=== PATIENT | female | born 1975 | race African-American/Black ===

== ENCOUNTER 2017-02-15 16:01 | Emergency (ER) | payer SELFPAY ==
[~2017-02-15] VITALS: Ht 167.6 cm; Wt 68.0 kg
[~2017-02-15 16:01] MED LIST: CHLO.12%30 SWISH-SPIT; MMW SWISH-SPIT
[2017-02-15 16:03] VITALS: BP 125/66; PULSE 99; RESP 20; TEMP 99; O2SAT 100
--- NOTE | 2017-02-15 16:38 | PD ---
HPI Chief Complaint: Slurry Man Problem/Complaint Time Seen by Provider: 16:37 Travel History International Travel<30 days: No Contact w/Intl Traveler<30days: No Traveled to known affect area: No History of Present Illness HPI 41-year-old female came to the emergency room with history of some vaginal bleeding every time she wipes after she urinates. Patient says her last menstrual cycle was 2 weeks ago. This is the second time it has happened in her mid cycle. No history of vaginal discharge. Patient has only protected sex. And she does not think there is any chance of being either. No history of dysuria. Patient seems a little bit distressed from this fact. She says she wants this to be over with. Vital signs are otherwise stable. [facility] Past Medical History Narrative Medical List of her past medical, surgical, social and family history is reviewed from the nursing note. Hx Anticoagulant Therapy: No Heart Rhythm Problems: No Cardiac Catheterization: No Cardiovascular Problems: No High Cholesterol: Yes Chemotherapy: No Congestive Heart Failure: No Cerebrovascular Accident: No Diabetes: No Diminished Hearing: No Headaches: Yes Hypertension: No Psychiatric: Yes (depression) Respiratory: No Immunizations Current: No Myocardial Infarction: No ?: Not LMP: 2 WEEKS : 3 Para: 3 Miscarriage: 0 : 0 Tubal Ligation: Yes Past Surgical History Coronary Artery Bypass Graft: No Hysterectomy: No Social History Alcohol Use: No Tobacco Use: No Substance Use: No Allergies-Medications (Allergen,Severity, Reaction): Coded Allergies: No Known Allergies (Verified , 03/03/16) Comments No known drug allergies. Reported Meds & Prescriptions Reported Meds & Active Scripts Active Norethindrone (Norethindrone Acetate) 5 Mg Tab 5 Mg PO DAILY Magic Mouthwash-Diphenhy Formula (Lidocaine/Diphenhydr/Alum/Mg/Simeth) Ml 5-10 Ml SWISH-SPIT 5 TIMES A DAY MAGIC MOUTHWASH CONTAINS 1/3 VISCOUS LIDOCAINE, 1/3 MAALOX, AND 1/3 BENADRYL. Peridex Oral Rinse (Chlorhexidine Gluconate) 0.12 % Gema 15 Ml SWISH-SPIT TID 7 Days Narrative Medication List of her home medications reviewed from the nursing note. Review of Systems Except as stated in HPI: all other systems reviewed are Neg Physical Exam Narrative GENERAL: Awake, alert, anxious SKIN: Focused skin assessment warm/dry. HEAD: Atraumatic. Normocephalic. EYES: Pupils equal and round. No scleral icterus. No injection or drainage. ENT: No nasal bleeding or discharge. Mucous membranes pink and moist. NECK: Trachea midline. No JVD. CARDIOVASCULAR: Regular rate and rhythm. No murmur appreciated. RESPIRATORY: No accessory muscle use. Clear to auscultation. Breath sounds equal bilaterally. GASTROINTESTINAL: Abdomen soft, non-tender, nondistended. Hepatic and splenic margins not palpable. MUSCULOSKELETAL: No obvious deformities. No clubbing. No cyanosis. No edema. NEUROLOGICAL: Awake and alert. No obvious cranial nerve deficits. Motor grossly within normal limits. Normal speech. PSYCHIATRIC: Appropriate mood and affect; insight and judgment normal. Data Data Last Documented VS Vital Signs Date Time Temp Pulse Resp B/P Pulse Ox O2 Delivery O2 Flow Rate FiO2 02/15/17 16:03 99.0 99 20 125/66 100 Room Air Orders Urinalysis - C+S If Indicated (02/15/17 16:45) Ed Urine Pregnancytest Poc (02/15/17 16:45) Labs Laboratory Tests Test 02/15/17 16:54 Urine Color YELLOW Urine Turbidity CLEAR Urine pH 7.0 Urine Specific [place] 1.025 Urine Protein NEG mg/dL Urine Glucose (UA) NEG mg/dL Urine Ketones NEG mg/dL Urine Occult Blood MOD Urine Nitrite NEG Urine Bilirubin NEG Urine Urobilinogen LESS THAN 2.0 MG/DL Urine Leukocyte Esterase NEG Urine RBC 1 /hpf Urine WBC 2 /hpf Urine Squamous Epithelial 2 /hpf Cells Urine Mucus FEW /lpf Microscopic Urinalysis Comment CULT NOT INDICATED MDM Medical Decision Making Medical Screen Exam Complete: Yes Emergency Medical Condition: Yes Medical Record Reviewed: Yes Differential Diagnosis UTI, hemorrhagic cystitis, DUB Narrative Course 5:15 PM awaiting for the UA. Case has been signed over to the oncoming ER physician. Procedures EKG Prior to Arrival: No Scripts Norethindrone 5 Mg Tab5 Mg PO DAILY #28 TAB Ref 0 Prov:Amy Olivier MD 02/15/17 Stanley Molina MD February 15, 2017 16:38
[2017-02-15 17:19] LABS: BLOOD, URINE MOD (NEG); COMMENT (UR) CULT NOT INDICATED; CULTURE IF INDICATED CULT NOT INDICATED; GLUCOSE,URINE NEG (NEG); KETONE, URINE NEG (NEG); MUCUS URINE FEW /lpf (OCC); NITRITE,URINE NEG (NEG); SQUAMOUS EPITHELIAL CELL URINE 2 /hpf (0-5); URINE COLOR YELLOW (YELLW/STRAW)
[2017-02-15] MEDS ORDERED: NORE5TAB PO (17:40)
--- NOTE | 2017-02-15 17:40 | PD ---
Physical Exam Date Seen by Provider: February 15, 2017 Narrative Patient is being seen for abnormal vaginal bleeding. Data Data Last Documented VS Vital Signs Date Time Temp Pulse Resp B/P Pulse Ox O2 Delivery O2 Flow Rate FiO2 02/15/17 16:03 99.0 99 20 125/66 100 Room Air Orders Urinalysis - C+S If Indicated (02/15/17 16:45) Ed Urine Pregnancytest Poc (02/15/17 16:45) Labs Laboratory Tests Test 02/15/17 16:54 Urine Color YELLOW Urine Turbidity CLEAR Urine pH 7.0 Urine Specific [place] 1.025 Urine Protein NEG mg/dL Urine Glucose (UA) NEG mg/dL Urine Ketones NEG mg/dL Urine Occult Blood MOD Urine Nitrite NEG Urine Bilirubin NEG Urine Urobilinogen LESS THAN 2.0 MG/DL Urine Leukocyte Esterase NEG Urine RBC 1 /hpf Urine WBC 2 /hpf Urine Squamous Epithelial 2 /hpf Cells Urine Mucus FEW /lpf Microscopic Urinalysis Comment CULT NOT INDICATED MDM Supervised Visit with JODY: No Narrative Course Laboratory Tests Test 02/15/17 16:54 Urine Color YELLOW Urine Turbidity CLEAR Urine pH 7.0 Urine Specific [place] 1.025 Urine Protein NEG mg/dL Urine Glucose (UA) NEG mg/dL Urine Ketones NEG mg/dL Urine Occult Blood MOD Urine Nitrite NEG Urine Bilirubin NEG Urine Urobilinogen LESS THAN 2.0 MG/DL Urine Leukocyte Esterase NEG Urine RBC 1 /hpf Urine WBC 2 /hpf Urine Squamous Epithelial 2 /hpf Cells Urine Mucus FEW /lpf Microscopic Urinalysis Comment CULT NOT INDICATED This patient needs to be evaluated by [employer]. She states that she knows of a [employer]PER[employer]ENDENT that she can follow-up with. She does state that she is interested in trying control pills. Diagnosis Primary Impression: Metrorrhagia Patient Instructions: Dysfunctional Uterine Bleeding (DC), General Instructions Med/Other Pt SpecificInfo: Prescription(s) given Scripts Norethindrone 5 Mg Tab5 Mg PO DAILY #28 TAB Ref 0 Prov:Amy Olivier MD 02/15/17 Disposition: 01 DISCHARGE HOME Condition: Stable Amy Olivier MD February 15, 2017 17:40
== END 2017-02-15 18:31 | disposition home or self-care (01) ==
LOC: NEPD 16:01
DX: N92.1 Excessive and frequent menstruation with irregular cycle (principal); E78.00 Pure hypercholesterolemia, unspecified; Z86.59 Personal history of other mental and behavioral disorders
CPT/HCPCS: 81001; 84703; 99283

== ENCOUNTER 2017-03-19 19:00 | Observation (INO) | payer SELFPAY ==
[~2017-03-19] VITALS: Ht 167.6 cm; Wt 62.0 kg
[~2017-03-19 19:00] MED LIST changes: +NORE5TAB PO
[2017-03-19 19:03] VITALS: BP 115/59; PULSE 73; RESP 16; TEMP 98.9; O2SAT 99
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
[2017-03-19] MEDS ORDERED: ASPIRIN 81 MG CHEW TAB PO ONE (19:30)
[2017-03-19] MEDS ORDERED: SODIUM CHLORIDE 0.9% FLUSH 10 ML FLUSH IVF PRN (19:30)
--- NOTE | 2017-03-19 19:54 | RADRPT ---
EXAM DATE/TIME: 03/19/2017 19:21 [facility] COMPARISON: No previous studies available for comparison. INDICATIONS : Chest pain. MEDICAL HISTORY : None. SURGICAL HISTORY : None. ENCOUNTER: Initial ACUITY: 1 day PAIN SCORE: 0/10 LOCATION: Bilateral chest FINDINGS: Portable AP view of the chest demonstrates a normal-sized cardiac silhouette. No effusion, consolidat ion, or pneumothorax is visualized. The bones and soft tissues demonstrate no acute abnormality. Lung s are underinflated with atelectasis at the left base. Multiple EKG lines overlie the patient. CONCLUSION: Underinflation with atelectasis at the left base. No acute finding is identified. Robin Bishop MD on March 19, 2017 at 19:51 Board Certified Radiologist. This report was verified electronically.
[2017-03-19 19:58] LABS: AUTOMATED NEUTROPHIL # 4.3 TH/MM3 (1.8-7.7); BASOPHIL % 0.6 % (0.0-2.0); EOSINOPHIL # 0.2 TH/MM3 (0-0.4); EOSINOPHIL % 2.3 % (0.0-4.0); HEMATOCRIT 31.2 % (35.0-46.0); HEMO FLAGS DIFF FINAL; LYMPH % 28.8 % (9.0-44.0); MEAN CELL VOLUME 72.7 FL (80.0-100.0); MEAN CORPUSCULAR HEMOGLOBIN 23.9 PG (27.0-34.0); MEAN CORPUSCULAR HGB CONC 32.8 % (32.0-36.0); MONO % 5.7 % (0.0-8.0); NEUT % 62.6 % (16.0-70.0); PLATELET COUNT 284 TH/MM3 (150-450); RED BLOOD COUNT 4.29 MIL/MM3 (4.00-5.30); RED CELL DISTRIBUTION WIDTH 16.4 % (11.6-17.2); WHITE BLOOD COUNT 6.8 TH/MM3 (4.0-11.0)
[2017-03-19 20:08] LABS: APTT (PATIENT) 25.9 SEC (24.3-30.1); PROTHROMBIN TIME - PATIENT 11.6 SEC (9.8-11.6)
[2017-03-19 20:13] LABS: ANION GAP 9 MEQ/L (5-15); AST (GOT) 15 U/L (15-37); BLOOD UREA NITROGEN 8 MG/DL (7-18); CHLORIDE 105 MEQ/L (98-107); GLOMERULAR FILTRATION RATE 101 ML/MIN (>89); POTASSIUM 3.6 MEQ/L (3.5-5.1); SODIUM (NA) 139 MEQ/L (136-145)
[2017-03-19 20:14] LABS: ALT (GPT) 22 U/L (10-53)
[2017-03-19 20:18] LABS: ALKALINE PHOSPHATASE 72 U/L (45-117); TOTAL BILIRUBIN ADULT 0.1 MG/DL (0.2-1.0)
[2017-03-19 20:20] LABS: CREATINE KINASE 79 U/L (26-192)
[2017-03-19] MEDS ORDERED: SODIUM CHLOR 0.9% 1000 ML INJ 1,000 ML IV SCH (20:47)
[2017-03-19 21:20] VITALS: BP 137/85; PULSE 69; RESP 18; O2SAT 100
[2017-03-19] MEDS ORDERED: LORazepam 2 MG/ML VIAL IV PUSH ONE (22:15)
[2017-03-19] MEDS ORDERED: IOHEXOL 350 MG/ML 10 ML VIAL (for RAD DIAG) IV ONE (22:19)
--- NOTE | 2017-03-19 22:27 | RADRPT ---
EXAM DATE/TIME: 03/19/2017 22:17 [facility] COMPARISON: No previous studies available for comparison. INDICATIONS : Chest pain. IV CONTRAST: 74 cc Omnipaque 350 (iohexol) IV RADIATION DOSE: 23.28 CTDIvol (mGy) MEDICAL HISTORY : None SURGICAL HISTORY : Tubal ligation. ENCOUNTER: Initial ACUITY: 2 days PAIN SCALE: 7/10 LOCATION: chest TECHNIQUE: Volumetric scanning of the chest was performed using a pulmonary embolism protocol MIP images were re constructed. Using automated exposure control and adjustment of the mA and/or kV according to patien t size, radiation dose was kept as low as reasonably achievable to obtain optimal diagnostic quality images. FINDINGS: PULMONARY ARTERIES: No filling defects are seen in the pulmonary arteries through the segmental level. LUNGS: There is no consolidation or pneumothorax . No concerning pulmonary nodule is visualized. Linear opa [place] in the left lower lobe likely represents atelectasis. PLEURAE: There is no pleural thickening or pleural effusion. MEDIASTINUM: There is good visualization of the great vessels of the middle mediastinum. No evidence of mediastin al or hilar adenopathy/mass. MUSCULOSKELETAL: No acute finding. MISCELLANEOUS: The visualized upper abdominal organs demonstrate no acute abnormality. CONCLUSION: No PE or acute abnormality is identified. Robin Bishop MD on March 19, 2017 at 22:22 Board Certified Radiologist. This report was verified electronically.
[2017-03-19] MEDS ORDERED: ACETAMINOPHEN 500 MG CPLT PO PRN (22:45)
[2017-03-19] MEDS ORDERED: SODIUM CHLORIDE 0.9% FLUSH 10 ML FLUSH IV FLUSH PRN (22:45)
[2017-03-19 23:31] LABS: CREATINE KINASE 73 U/L (26-192)
[2017-03-19 23:59] VITALS: BP 120/72; PULSE 70; RESP 18; TEMP 97.9; O2SAT 100
[2017-03-20] VITALS (7 sets, daily range): BP systolic 104–105; BP diastolic 54–57; PULSE 52–68; RESP 18–20; TEMP 97.9–98.3; O2SAT 62–100
[2017-03-20] MEDS ORDERED: ALPRAZolam 0.5 MG TAB PO PRN
[2017-03-20] MEDS: IBUPROFEN 600 MG TAB PO SCH ×2 (00:30→06:00)
[2017-03-20 02:22] LABS: TRANSFERRIN IRON PROFILE 292 MG/DL (200-360)
[2017-03-20 02:31] LABS: FERRITIN 5 NG/ML (8-252)
[2017-03-20 03:32] LABS: CREATINE KINASE 63 U/L (26-192)
--- NOTE | 2017-03-20 08:30 | HHI.DCPOC ---
Discharge Care Plan Diagnosis: (1) Chest pain, atypical Goals to Promote Your Health * To prevent worsening of your condition and complications * To maintain your health at the optimal level Directions to Meet Your Goals Take your medications as prescribed Follow your dietary instruction Follow activity as directed Keep your appointments as scheduled Take your immunizations and boosters as scheduled If your symptoms worsen call your PCP, if no PCP go to Urgent Care Center or Emergency Room Smoking is Dangerous to Your Health. Avoid second hand smoke Call the 24-hour hour crisis hotline for domestic abuse at Niraj Velasquez Mar 20, 2017 08:30
[2017-03-20] MEDS ORDERED: SODIUM CHLORIDE 0.9% FLUSH 10 ML FLUSH IV FLUSH SCH (09:00)
--- NOTE | 2017-03-20 09:33 | HHI.HP ---
HPI Primary Care Physician No Primary Care Physician Chief Complaint Chest pain History of Present Illness This is a 41-year-old female that presents to ED via private vehicle to evaluate chest discomfort. She states that she has had 2 days of constant left- sided chest discomfort. We'll bit of shortness of breath initially but that a since resolved. No nausea or diaphoresis. Denies history of heart disease. Cannot recall having any cardiac workup in the past. Patient quit smoking 3 days ago but prior that smoked one third pack a day for 13 years. Denies . Review of Systems General: Patient denies fevers, chills recent, and recent travel HEENT: Patient denies headache, sore throat, difficulty swallowing. Cardiovascular: Has the chest discomfort as mentioned above. Denies sensation of heart beating rapidly or irregularly. No syncope. Respiratory: She was initially short of breath. Denies inspirational chest discomfort. Denies coughing wheezing or hemoptysis. GI: Patient denies nausea, vomiting, diarrhea, abdominal pain, bloody stools. Musculoskeletal: Patient denies joint pain or edema. Denies calf pain or edema. Neurovascular: Patient denies numbness, tingling, weakness in extremities. Denies headache. Endocrine: Denies polyuria and polydipsia. Hematologic: Denies easy bruising. Skin: Denies rash or itching. Past Family Social History Allergies: Coded Allergies: No Known Allergies (Verified , 03/19/17) Past Medical History Past history tobacco abuse. Denies hypertension, hyperlipidemia, diabetes, and known CAD. Past Surgical History Noncontributory. Reported Medications Reported Meds & Active Scripts Active Norethindrone (Norethindrone Acetate) 5 Mg Tab 5 Mg PO DAILY Active Ordered Medications Current Medications Medications (Trade) Dose Ordered Sig/Michelle Route Start Time Stop Time Status Last Admin (NS Flush) 2 ml UNSCH PRN IVF 03/19/17 19:30 (NS Flush) 2 ml UNSCH PRN IV FLUSH 03/19/17 22:45 (NS Flush) 2 ml BID IV FLUSH 03/20/17 09:00 03/20/17 08:32 (Tylenol) 500 mg Q4H PRN PO 03/19/17 22:45 (Xanax) 0.5 mg Q6H PRN PO 03/20/17 00:00 (Motrin) 600 mg Q6HR PO 03/20/17 00:00 03/20/17 00:30 Family History Denies family history of CAD. Social History Patient quit smoking cigarettes 3 days ago. Prior to that with smoked one third pack of cigarettes daily for 13 years. Denies alcohol or illicit drugs. Physical Exam Vital Signs Vital Signs Date Time Temp Pulse Resp B/P Pulse Ox O2 Delivery O2 Flow Rate FiO2 03/20/17 08:30 66 03/20/17 07:56 98 21 03/20/17 07:55 98.3 65 18 104/57 100 03/20/17 06:13 62 21 03/20/17 04:37 97.9 68 20 105/54 98 03/20/17 03:47 52 03/20/17 01:21 64 03/19/17 23:59 97.9 70 18 120/72 100 03/19/17 21:20 69 18 137/85 100 Room Air 03/19/17 19:12 18 03/19/17 19:03 98.9 73 16 115/59 99 Room Air Physical Exam GENERAL: This is a well-nourished, well-developed patient, in no apparent distress. Patient speaks in clear complete sentences. Patient is pleasant. HEENT: Head is atraumatic and normocephalic. Neck is supple without lymphadenopathy and trachea is midline. No JVD or carotid bruits. CARDIOVASCULAR: Regular rate and rhythm without murmurs, gallops, or rubs. RESPIRATORY: Clear to auscultation. Breath sounds equal bilaterally. No wheezes , rales, or rhonchi. Chest wall is tender. No use of accessory muscles. GASTROINTESTINAL: Abdomen is nontender, nondistended. Abdomen soft. No obvious pulsatile mass or bruit. No CVA tenderness. Strong femoral pulses bilaterally. Normal bowel sounds in all quadrants. MUSCULOSKELETAL: Patient is moving upper and lower extremities freely. No calf tenderness or edema, no Homans sign. Strong pulses in upper and lower extremities. NEUROLOGICAL: Patient is alert and oriented. Cranial nerves 2-12 are grossly intact. No focal deficits and speech is clear. SKIN: No rash and turgor is normal. Laboratory Laboratory Tests Test 03/19/17 03/19/17 03/20/17 19:40 22:55 02:10 White Blood Count 6.8 Red Blood Count 4.29 Hemoglobin 10.2 Hematocrit 31.2 Mean Corpuscular Volume 72.7 Mean Corpuscular Hemoglobin 23.9 Mean Corpuscular Hemoglobin 32.8 Concent Red Cell Distribution Width 16.4 Platelet Count 284 Mean Platelet Volume 7.8 Neutrophils (%) (Auto) 62.6 Lymphocytes (%) (Auto) 28.8 Monocytes (%) (Auto) 5.7 Eosinophils (%) (Auto) 2.3 Basophils (%) (Auto) 0.6 Neutrophils # (Auto) 4.3 Lymphocytes # (Auto) 2.0 Monocytes # (Auto) 0.4 Eosinophils # (Auto) 0.2 Basophils # (Auto) 0.0 CBC Comment DIFF FINAL Differential Comment Prothrombin Time 11.6 Prothromb Time International 1.0 Ratio Activated Partial 25.9 Thromboplast Time D-Dimer Quantitative (PE/DVT) 0.62 Sodium Level 139 Potassium Level 3.6 Chloride Level 105 Carbon Dioxide Level 25.0 Anion Gap 9 Blood Urea Nitrogen 8 Creatinine 0.76 Estimat Glomerular Filtration 101 Rate Random Glucose 90 Calcium Level 8.5 Total Bilirubin 0.1 Aspartate Amino Transf 15 (AST/SGOT) Alanine Aminotransferase 22 (ALT/SGPT) Alkaline Phosphatase 72 Total Creatine Kinase 79 73 63 Troponin I LESS THAN 0.02 LESS THAN 0.02 LESS THAN 0.02 Total Protein 6.7 Albumin 3.4 Erythrocyte Sedimentation Rate 10 Iron Level 19 Total Iron Binding Capacity 409 Percent Iron Saturation 4.6 Ferritin 5 Result Diagram: 03/19/17193903/19/171939 Imaging Last [address] Angiography 03/19/172046 Signed Impressions: Service Date/Time: Sunday, March 19, 2017 22:17 - CONCLUSION: No PE or acute abnormality is identified. Robin Bishop MD Chest X-Ray 03/19/171920 Signed Impressions: Service Date/Time: Sunday, March 19, 2017 19:21 - CONCLUSION: Underinflation with atelectasis at the left base. No acute finding is identified. Robin Bishop MD Course EKGs have sinus rhythm without significant ST segment depressions or elevations. Assessment and Plan Assessment and Plan * Atypical chest pain: Patient has had serial cardiac enzymes and EKGs for ruling out purposes. She has been seen by Dr. Alonso Glasgow of cardiology in the chest pain center. Symptoms are atypical and she will be discharged home at this time. Patient is stable at this time. She is agreeable to this plan. Niraj Velasquez Mar 20, 2017 09:33
--- NOTE | 2017-03-20 15:02 | EKG ---
Date Performed: 03/20/2017 Time Performed: 02:10:12 PTAGE: 41 years EKG: Sinus rhythm POSSIBLE RIGHT VENTRICULAR CONDUCTION DELAY BORDERLINE ECG PREVIOUS TRACING : 03/19/2017 22.57 Since previous tracing, no significant change noted DOCTOR: Alonso Glasgow Interpretating Date/Time 03/20/2017 15:00:15
--- NOTE | 2017-03-20 15:03 | EKG ---
Date Performed: 03/19/2017 Time Performed: 22:57:51 PTAGE: 41 years EKG: Sinus rhythm POSSIBLE RIGHT VENTRICULAR CONDUCTION DELAY BORDERLINE ECG PREVIOUS TRACING : 03/19/2017 19.27 Since previous tracing, no significant change noted DOCTOR: Alonso Glasgow Interpretating Date/Time 03/20/2017 15:01:21
--- NOTE | 2017-03-20 15:03 | EKG ---
Date Performed: 03/19/2017 Time Performed: 19:27:55 PTAGE: 41 years EKG: Sinus rhythm POSSIBLE RIGHT VENTRICULAR CONDUCTION DELAY MINIMAL ST DEPRESSION BORDERLINE ECG NO PREVIOUS TRACING DOCTOR: Alonso Glasgow Interpretating Date/Time 03/20/2017 15:01:48
== END 2017-03-20 10:44 | disposition home or self-care (01) ==
LOC: NEPE 19:00 → NEDA 22:51 → NEPHCDU 23:46
PROVIDERS: ADMIT Family Medicine; ATTEND Family Medicine
DX: R07.89 Other chest pain (principal); J98.11 Atelectasis; D64.9 Anemia, unspecified; E78.00 Pure hypercholesterolemia, unspecified; Z87.891 Personal history of nicotine dependence; Z79.899 Other long term (current) drug therapy
CPT/HCPCS: 71010; 71275; 80053; 82550; 82728; 83540; 83550; 84484; 84703; 85025; 85379; 85610; 85652; 85730; 93005; 96360; 99285; G0378; J7030; Q9967

== ENCOUNTER 2017-03-27 19:00 | Emergency (ER) | payer SELFPAY ==
[~2017-03-27] VITALS: Ht 167.6 cm; Wt 61.0 kg
[~2017-03-27 19:00] MED LIST changes: -CHLO.12%30 SWISH-SPIT; -MMW SWISH-SPIT
[2017-03-27 19:01] VITALS: BP 124/59; PULSE 86; RESP 16; TEMP 98.9; O2SAT 100
--- NOTE | 2017-03-27 19:40 | PD ---
Physical Exam Time Seen by Provider: 19:35 Narrative 41yo F c/o post nasal drip and "muffled" voice x 1 year. Has tooth pain x 2 years and thinks the infection from her tooth pain is causing the postnasal drip and muffled voice. Reports cough. Denies fever. Patient seen in triage. VS reviewed. Awaiting bed placement. Data Data Last Documented VS Vital Signs Date Time Temp Pulse Resp B/P Pulse Ox O2 Delivery O2 Flow Rate FiO2 03/27/17 19:01 98.9 86 16 124/59 100 Room Air MDM Supervised Visit with JODY: Stephanie Ly Mar 27, 2017 19:40
[2017-03-27] MEDS ORDERED: PSEU30TA82 PO (21:55)
[2017-03-27] MEDS ORDERED: FLUT1SPR5 EACH NARE (21:55)
--- NOTE | 2017-03-27 21:55 | PD ---
HPI Chief Complaint: ENT Complaint Time Seen by Provider: 21:12 Travel History International Travel<30 days: No Contact w/Intl Traveler<30days: No Traveled to known affect area: No History of Present Illness HPI 41yo F presents with a list of symptoms that she found online. Pt mainly complained of nasal congestion for 6 months and states that she feels something is wrong with her and she needs help. Pt is speaking in complete sentences with no airway compromise. No tongue swelling or uvula. Sounds more like post nasal drip. Denies any fever, chest pain, sob, n/v, abdominal pain, focal weakness or numbness. PFSH Past Medical History Hx Anticoagulant Therapy: No Heart Rhythm Problems: No Cardiac Catheterization: No Cardiovascular Problems: No High Cholesterol: No Chemotherapy: No Congestive Heart Failure: No Cerebrovascular Accident: No Diabetes: No Diminished Hearing: No Headaches: Yes Heparin Induced Thrombocytopen: No Hypertension: No Psychiatric: Yes (depression) Respiratory: No Immunizations Current: No Myocardial Infarction: No ?: Not LMP: 03/21/17 : 3 Para: 3 Miscarriage: 0 : 0 Tubal Ligation: Yes Past Surgical History Coronary Artery Bypass Graft: No Hysterectomy: No Social History Alcohol Use: No Tobacco Use: Yes (quit 2 days ago) Substance Use: No Allergies-Medications (Allergen,Severity, Reaction): Coded Allergies: No Known Allergies (Verified , 03/19/17) Reported Meds & Prescriptions Reported Meds & Active Scripts Active Sudafed (Pseudoephedrine HCl) 30 Mg Tablet 1 Tab PO Q12HR 5 Days Flonase Nasal [place] (Fluticasone Nasal [place]) 50 Mcg/Act [place] 50 Mcg EACH NARE DAILY Norethindrone (Norethindrone Acetate) 5 Mg Tab 5 Mg PO DAILY Review of Systems Except as stated in HPI: all other systems reviewed are Neg Physical Exam Narrative GENERAL: 41yo F not in distress. SKIN: Focused skin assessment warm/dry. HEAD: Atraumatic. Normocephalic. EYES: Pupils equal and round. No scleral icterus. No injection or drainage. ENT: +Swollen bilateral nasal turbinates. NECK: Throat: clear. No exudate. Patent airway. CARDIOVASCULAR: Regular rate and rhythm. No murmur appreciated. RESPIRATORY: No accessory muscle use. Clear to auscultation. Breath sounds equal bilaterally. GASTROINTESTINAL: Abdomen soft, non-tender, nondistended. MUSCULOSKELETAL: No obvious deformities. No clubbing. No cyanosis. No edema. NEUROLOGICAL: Awake and alert. No obvious cranial nerve deficits. Motor grossly within normal limits. Normal speech. Data Data Last Documented VS Vital Signs Date Time Temp Pulse Resp B/P Pulse Ox O2 Delivery O2 Flow Rate FiO2 03/27/17 19:01 98.9 86 16 124/59 100 Room Air MDM Medical Decision Making Medical Screen Exam Complete: Yes Emergency Medical Condition: Yes Differential Diagnosis Pharyngitis vs. URI vs. post nasal drip Narrative Course 41yo F with main complaint of nasal congestion for 6 months. Sounds like post nasal drip. Will give flonase. Pt insist she also want a pill so will give sudafed as well. Pt is well appearing and needs to go back to the senior care before it closes. Return precautions given. Diagnosis Primary Impression: Nasal congestion Patient Instructions: General Instructions Departure Forms: Tests/Procedures Additional Instructions: Please follow up with your PMD in 1-2 days. Return to the ED if your symptoms worsen. Med/Other Pt SpecificInfo: Prescription(s) given Scripts Pseudoephedrine HCl (Sudafed)30 Mg Tablet1 Tab PO Q12HR 5 Days Prov:Hanna Allred DO 03/27/17 Fluticasone Nasal [place] (Flonase Nasal [place])50 Mcg/Act Spray50 Mcg EACH NARE DAILY #1 BOTTLE Ref 0 Prov:Hanna Allred DO 03/27/17 Disposition: 01 DISCHARGE HOME Condition: Stable Hanna Allred DO Mar 27, 2017 21:55
== END 2017-03-27 22:11 | disposition home or self-care (01) ==
LOC: NEPD 19:00
DX: R09.81 Nasal congestion (principal); F32.9 Major depressive disorder, single episode, unspecified; Z79.899 Other long term (current) drug therapy
CPT/HCPCS: 99283

== ENCOUNTER 2017-04-22 22:39 | Emergency (ER) | payer SELFPAY ==
[~2017-04-22 22:39] MED LIST changes: +FLUT1SPR5 EACH NARE; +PSEU30TA82 PO
[2017-04-22 22:41] VITALS: BP 124/61; PULSE 76; RESP 16; O2SAT 100
--- NOTE | 2017-04-23 01:59 | PD ---
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 Patient does not report any fever or chills. Patient states she had unprotected intercourse a few days ago. Last period was normal for her and 2 weeks ago. Patient rates her pain as 5/10 in intensity and worsened with supine positioning. Patient has taken no medications for discomfort. PFSH Past Medical History Narrative Medical Headache depression tubal ligation tobacco use Hx Anticoagulant Therapy: No Heart Rhythm Problems: No Cardiac Catheterization: No Cardiovascular Problems: No High Cholesterol: No Chemotherapy: No Congestive Heart Failure: No Cerebrovascular Accident: No Diabetes: No Diminished Hearing: No Headaches: Yes Heparin Induced Thrombocytopen: No Hypertension: No Psychiatric: Yes (depression) Respiratory: No Immunizations Current: No Myocardial Infarction: No : 3 Para: 3 Miscarriage: 0 : 0 Tubal Ligation: Yes Past Surgical History Coronary Artery Bypass Graft: No Hysterectomy: No Social History Alcohol Use: No Tobacco Use: Yes (quit 2 days ago) Substance Use: No Allergies-Medications (Allergen,Severity, Reaction): Coded Allergies: No Known Allergies (Verified , 03/19/17) Reported Meds & Prescriptions Reported Meds & Active Scripts Active Norethindrone (Norethindrone Acetate) 5 Mg Tab 5 Mg PO DAILY Review of Systems Except as stated in HPI: all other systems reviewed are Neg General / Constitutional: No: Fever, Chills HENT: No: Congestion Cardiovascular: No: Chest Pain or Discomfort Respiratory: No: Cough, Shortness of Breath Gastrointestinal: No: Nausea, Vomiting, Abdominal Pain Genitourinary: Positive: Pelvic Pain, Flank Pain, Discharge, No: Dysuria Musculoskeletal: No: Myalgias, Arthralgias Skin: No Rash Neurologic: No: Weakness Psychiatric: No: Anxiety Endocrine: No: Heat Intolerance Hematologic/Lymphatic: No: Lymph Node Enlargement Physical Exam Narrative GENERAL: Well-developed well-nourished female in no acute distress no respiratory distress SKIN: Warm and dry. HEAD: Normocephalic. EYES: No scleral icterus. No injection or drainage. NECK: Supple, trachea midline. No JVD or lymphadenopathy. CARDIOVASCULAR: Regular rate and rhythm without murmurs, gallops, or rubs. RESPIRATORY: Breath sounds equal bilaterally. No accessory muscle use. GASTROINTESTINAL: Abdomen soft, non-tender, nondistended. Pelvic exam: Normal external exam no redness no induration no lesions; speculum exam cloudy discharge with old blood no clots no tissue cervical os closed bimanual exam no cervical motion tenderness no adnexal mass or tenderness specimens collected and sent for resulting. MUSCULOSKELETAL: No cyanosis, or edema. BACK: Nontender without obvious deformity. No CVA tenderness. Data Data Last Documented VS Vital Signs Date Time Temp Pulse Resp B/P Pulse Ox O2 Delivery O2 Flow Rate FiO2 04/22/17 22:41 76 16 124/61 100 Orders Gc And Chlamydia Pcr (04/23/17 01:53) Wet Prep Profile (04/23/17 01:53) Urinalysis - C+S If Indicated (04/23/17 01:53) Ceftriaxone Inj (Rocephin Inj) (04/23/17 02:00) Lidocaine 1% Inj (50 Ml) (Xylocaine 1% I (04/23/17 02:00) Ed Urine Pregnancytest Poc (04/23/17 01:53) Azithromycin (Zithromax) (04/23/17 02:00) Ketorolac Inj (Toradol Inj) (04/23/17 02:00) Ct Abd/Pel W/O Iv Contrast (04/23/17 ) Labs Laboratory Tests Test 04/23/17 04/23/17 01:35 01:55 Urine Color YELLOW Urine Turbidity CLEAR Urine pH 6.0 Urine Specific [place] 1.018 Urine Protein NEG mg/dL Urine Glucose (UA) NEG mg/dL Urine Ketones NEG mg/dL Urine Occult Blood NEG Urine Nitrite NEG Urine Bilirubin NEG Urine Urobilinogen LESS THAN 2.0 MG/DL Urine Leukocyte Esterase SMALL Urine RBC 1 /hpf Urine WBC 5 /hpf Urine Squamous Epithelial 2 /hpf Cells Urine Bacteria OCC /hpf Microscopic Urinalysis Comment CULT NOT INDICATED Clue Cells (Wet Prep) PRESENT Vaginal Trichomonas (Wet Prep) PRESENT Vaginal Yeast (Wet Prep) NS MDM Medical Decision Making Medical Screen Exam Complete: Yes Emergency Medical Condition: Yes Medical Record Reviewed: Yes Interpretation(s) Wet prep positive trichomoniasis positive clue cells Urinalysis few leukocyte Estrace culture not indicated [id number] hCG negative CT abdomen and pelvis reveals no acute intra-abdominal or pelvic abnormality per reading radiologist Vital Signs Date Time Temp Pulse Resp B/P Pulse Ox O2 Delivery O2 Flow Rate FiO2 04/22/17 22:41 76 16 124/61 100 Differential Diagnosis Vaginal discharge, STI, PID, ruptured ovarian cyst, UTI, renal colic, also to consider ovarian torsion, pelvic mass Narrative Course [id number] hCG ordered along with urinalysis blood prep specimens for GC and gonorrhea and urinalysis; plan for CT kidney stone protocol Diagnosis Primary Impression: Pelvic pain in female Referrals: Primary Care Physician call for appointment Patient Instructions: General Instructions Additional Instructions: Increase fluid hydration remain sexually abstinent 7 days Follow up with primary care provider Return to the emergency department for any concerns or change in condition Complete course of medications as prescribed Med/Other Pt SpecificInfo: Prescription(s) given Scripts Naproxen Sodium DS (Anaprox DS)550 Mg [id number] Mg PO Q12HR #12 TAB Ref 0 Prov:Michelle Narayanan MD 04/23/17 Doxycycline Hyclate 100 Mg [id number] Mg PO BID 7 Days Prov:Michelle Narayanan MD 04/23/17 Metronidazole Vaginal Gel (Metrogel Vaginal Gel)0.75 % Gel1 Appl VAGINAL HS 5 Days Ref 0 Prov:Michelle Narayanan MD 04/23/17 Disposition: LEFT WITHOUT BEING SEEN Michelle Narayanan MD Apr 23, 2017 01:59
[2017-04-23] MEDS ORDERED: LIDOCAINE HCL 1% 50 ML VIAL IM ONE (02:00)
[2017-04-23] MEDS ORDERED: AZITHROMYCIN 250 MG TAB PO ONE (02:00)
[2017-04-23] MEDS ORDERED: KETOROLAC TROMETHAMINE 60 MG/2 ML (IM) VIAL IM ONE (02:00)
[2017-04-23] MEDS ORDERED: cefTRIAXone 250 MG VIAL IM ONE (02:00)
[2017-04-23 02:25] LABS: BACTERIA, URINE OCC /hpf; BLOOD, URINE NEG (NEG); COMMENT (UR) CULT NOT INDICATED; CULTURE IF INDICATED CULT NOT INDICATED; GLUCOSE,URINE NEG (NEG); KETONE, URINE NEG (NEG); NITRITE,URINE NEG (NEG); SQUAMOUS EPITHELIAL CELL URINE 2 /hpf (0-5); URINE COLOR YELLOW (YELLW/STRAW)
--- NOTE | 2017-04-23 03:20 | RADRPT ---
EXAM DATE/TIME: 04/23/2017 02:57 [facility] COMPARISON: CT PULMONARY ANGIOGRAM, March 19, 2017, 22:17. INDICATIONS : Left lower quadrant pain. ORAL CONTRAST: No oral contrast ingested. RADIATION DOSE: 6.44 CTDIvol (mGy) MEDICAL HISTORY : None SURGICAL HISTORY : Tubal ligation. ENCOUNTER: Initial ACUITY: 1 day PAIN SCALE: 4/10 LOCATION: Left lower quadrant TECHNIQUE: Volumetric scanning of the abdomen and pelvis was performed. Using automated exposure control and ad justment of the mA and/or kV according to patient size, radiation dose was kept as low as reasonably achievable to obtain optimal diagnostic quality images. DICOM format image data is available electro nically for review and comparison. FINDINGS: LOWER LUNGS: Mild pleuroparenchymal scarring in the posterior left lung base. LIVER: Homogeneous density without lesion. There is no dilation of the biliary tree. No calcified gallston es. SPLEEN: Normal size without lesion. PANCREAS: Within normal limits. KIDNEYS: Normal in size and shape. There is no mass, stone, or hydronephrosis. ADRENAL GLANDS: Within normal limits. VASCULAR: There is no aortic aneurysm. BOWEL/MESENTERY: The stomach, small bowel, and colon demonstrate no acute abnormality. There is no free intraperitone al air or fluid. ABDOMINAL WALL: Within normal limits. RETROPERITONEUM: There is no lymphadenopathy. BLADDER: No wall thickening or mass. REPRODUCTIVE: Within normal limits. INGUINAL: There is no lymphadenopathy or hernia. MUSCULOSKELETAL: Within normal limits for patient age. CONCLUSION: No acute CT findings in the abdomen or pelvis. Robin Goodwin MD on April 23, 2017 at 3:14 Board Certified Radiologist. This report was verified electronically.
[2017-04-23] MEDS ORDERED: METR0.7528 VAGINAL (03:39)
[2017-04-23] MEDS ORDERED: DOXY100T PO (03:39)
[2017-04-23] MEDS ORDERED: NAPR550 PO (03:39)
[2017-04-23 04:09] LABS: CHLAMYDIA PCR NOT DETECTED (NOT DETECT); NEISSERIA PCR NOT DETECTED (NOT DETECT)
== END 2017-04-23 04:05 | disposition home or self-care (01) ==
LOC: NEPC 22:39
DX: R10.2 Pelvic and perineal pain (principal)
CPT/HCPCS: 74176; 81001; 84703; 87210; 87491; 87591; 96372; 99284; J0696; J1885

== ENCOUNTER 2017-06-21 16:17 | Emergency (ER) | payer SELFPAY ==
[~2017-06-21] VITALS: Ht 167.6 cm; Wt 65.0 kg
[~2017-06-21 16:17] MED LIST changes: +DOXY100T PO; -FLUT1SPR5 EACH NARE; +METR0.7528 VAGINAL; +NAPR550 PO; -PSEU30TA82 PO
[2017-06-21 16:20] VITALS: BP 120/58; PULSE 86; RESP 20; TEMP 98.6; O2SAT 100
--- NOTE | 2017-06-21 16:29 | PD ---
Physical Exam Date Seen by Provider: Jun 21, 2017 Time Seen by Provider: 16:25 Narrative 42-year-old black female presents to emergency department requesting evaluation of a possible intestinal parasite. She states that she's not been able to gain any weight. She's had intermittent abdominal cramping. She reports possible blood in her stool. She denies any fever or chills. No cough or congestion. No dysuria or frequency. She states that a family member is in nursing school and feels that she may develop a parasite. Data Data Last Documented VS Vital Signs Date Time Temp Pulse Resp B/P (MAP) Pulse Ox O2 Delivery O2 Flow Rate FiO2 06/21/17 16:20 98.6 86 20 120/58 (78) 100 Room Air [facility] Medical Record Reviewed: No Supervised Visit with JODY: Santos Disla Jun 21, 2017 16:29
--- NOTE | 2017-06-21 17:25 | PD ---
HPI Chief Complaint: Medical Clearance Time Seen by Provider: 17:04 Travel History International Travel<30 days: No Contact w/Intl Traveler<30days: No Traveled to known affect area: No History of Present Illness HPI Patient is a 42-year-old female presents the emergency department for multiple complaints: First complaint is that the patient eyes have felt dry for the past year, her second complaint is that she thinks she has warms in her abdomen because she whenever she eats she is not able to gain any weight, she discussed this with her daughter who is a nursing resident who thinks she might have parasites in her abdomen. The symptoms been going on for more than a year. She is also complaining of vaginal discharge which she states she's been diagnosed with trichomonas and Chlamydia and is been treated multiple times for this and despite using condoms always comes back. She states the symptoms been going on for a month. She states she's been having some mild intermittent lower quadrant abdominal cramping without any nausea vomiting. She states she has had some blood in the stool but no diarrhea. She also thinks that she has an intestinal parasite because she has a fungal infection of her toe and after reading online and found that this could be a sign of intestinal parasite. Patient does not have a primary care physician and has not been able to these symptoms out with another physician. She's been evaluated multiple times she states here and at [facility] and always receives "the antibiotics" for STDs. She also thinks that she has Trichomonas in her eyes because they burn. Reports no redness and no discharge from the eyes. PFSH Past Medical History Hx Anticoagulant Therapy: No Heart Rhythm Problems: No Cardiac Catheterization: No Cardiovascular Problems: No High Cholesterol: No Chemotherapy: No Congestive Heart Failure: No Cerebrovascular Accident: No Diabetes: No Diminished Hearing: No Headaches: Yes Heparin Induced Thrombocytopen: No Hypertension: No Psychiatric: Yes (depression) Respiratory: No Immunizations Current: No Myocardial Infarction: No ?: Not : 3 Para: 3 Miscarriage: 0 : 0 Tubal Ligation: Yes Past Surgical History Coronary Artery Bypass Graft: No Hysterectomy: No Social History Alcohol Use: No Tobacco Use: Yes (quit 2 days ago) Substance Use: No Allergies-Medications (Allergen,Severity, Reaction): Coded Allergies: No Known Allergies (Verified , 03/19/17) Reported Meds & Prescriptions Reported Meds & Active Scripts Active Anaprox DS (Naproxen Sodium) 550 Mg Tab 550 Mg PO Q12HR Doxycycline Hyclate 100 Mg Tab 100 Mg PO BID 7 Days Metrogel Vaginal Gel (Metronidazole Vaginal Gel) 0.75 % Gel 1 Appl VAGINAL HS 5 Days Norethindrone (Norethindrone Acetate) 5 Mg Tab 5 Mg PO DAILY Review of Systems Except as stated in HPI: all other systems reviewed are Neg Physical Exam Narrative GENERAL: Well-developed well-nourished, no obvious distress. SKIN: Focused skin assessment warm/dry. HEAD: Atraumatic. Normocephalic. EYES: Pupils equal and round. No scleral icterus. No injection or drainage. No proptosis. ENT: No nasal bleeding or discharge. Mucous membranes pink and moist. NECK: Trachea midline. No JVD. CARDIOVASCULAR: Regular rate and rhythm. No murmur appreciated. RESPIRATORY: No accessory muscle use. Clear to auscultation. Breath sounds equal bilaterally. GASTROINTESTINAL: Abdomen soft, non-tender, nondistended. Hepatic and splenic margins not palpable. MUSCULOSKELETAL: No obvious deformities. No clubbing. No cyanosis. No edema. NEUROLOGICAL: Awake and alert. No obvious cranial nerve deficits. Motor grossly within normal limits. Normal speech. PSYCHIATRIC: Appropriate mood and affect; insight and judgment normal. Data Data Last Documented VS Vital Signs Date Time Temp Pulse Resp B/P (MAP) Pulse Ox O2 Delivery O2 Flow Rate FiO2 06/21/17 16:20 98.6 86 20 120/58 (78) 100 Room Air Orders Orders Wet Prep Profile (06/21/17 17:18) Gc And Chlamydia Pcr (06/21/17 17:18) Urinalysis - C+S If Indicated (06/21/17 17:18) Ed Urine Pregnancytest Poc (06/21/17 17:18) MDM Medical Decision Making Medical Screen Exam Complete: Yes Emergency Medical Condition: No Differential Diagnosis Intestinal worms possible but unlikely, STD, acute life-threatening medical emergency highly unlikely, thyroid storm excluded clinically, hyperthyroidism is possible that the patient did not stay long enough for me to order her thyroid panel. Narrative Course Patient roomed in the emergency department, I discussed with her that her conditions: Inability to gain weight, irregular periods, fungal infection of her toe are not life-threatening medical emergencies and can be worked up by her primary care physician, I discussed with her that her recurrent STDs may be a product of in proper barrier contraception use. I recommended to her that she have a pelvic exam to exclude recurrent STD or cervicitis as a cause of her discharge initially agreeable she approached the nursing desk and stated that she didn't want to stay and then eloped. Diagnosis Primary Impression: Pelvic pain in female Additional Instructions: Recommending testing and treating for all of your sexual partners. No sex until you discharge has resolved. Condoms are must always to prevent spread of infection. Recommended following up with the [facility] the health department or primary care physician for testing/treatment of your other chronic health concerns. Disposition: 07 AGAINST MEDICAL ADVICE Jose Carlos Jimenez MD Jun 21, 2017 17:25
== END 2017-06-21 17:30 | disposition left against medical advice (07) ==
LOC: NEPD 16:17
DX: R10.2 Pelvic and perineal pain (principal)
CPT/HCPCS: 99282

== ENCOUNTER 2017-10-17 16:19 | Emergency (ER) | payer SELFPAY ==
[~2017-10-17 16:19] MED LIST changes: -NAPR550 PO; +NAPR5TAB5 PO
[2017-10-17 16:21] VITALS: BP 130/63; PULSE 80; RESP 16; TEMP 98.5; O2SAT 100
[2017-10-17] MEDS ORDERED: FAMO1TAB37 PO (18:02)
--- NOTE | 2017-10-17 18:02 | PD ---
HPI Chief Complaint: Cold / Flu Symptoms Time Seen by Provider: 17:39 Travel History International Travel<30 days: No Contact w/Intl Traveler<30days: No Traveled to known affect area: No History of Present Illness HPI 42-year-old female here with complaint of throat irritation for 1 year. She denies difficulty swallowing or fever and chills. She cannot recall specific aggravating or alleviating factors. No associating symptoms. Symptom severity as mild. PFSH Past Medical History Medical History: Denies Significant Hx Hx Anticoagulant Therapy: No Heart Rhythm Problems: No Cardiac Catheterization: No Cardiovascular Problems: No High Cholesterol: No Chemotherapy: No Congestive Heart Failure: No Cerebrovascular Accident: No Diabetes: No Diminished Hearing: No Headaches: Yes Heparin Induced Thrombocytopen: No Hypertension: No Psychiatric: Yes (depression) Respiratory: No Immunizations Current: No Myocardial Infarction: No ?: Not LMP: 10/16/17 : 3 Para: 3 Miscarriage: 0 : 0 Tubal Ligation: Yes Past Surgical History Coronary Artery Bypass Graft: No Hysterectomy: No Social History Alcohol Use: No Tobacco Use: Yes (quit 2 days ago) Substance Use: No Allergies-Medications (Allergen,Severity, Reaction): Coded Allergies: metronidazole (Verified Allergy, Severe, 10/17/17) No Known Allergies (Verified Allergy, Unknown, 10/17/17) Reported Meds & Prescriptions Reported Meds & Active Scripts Active Pepcid (Famotidine) 20 Mg Tab 20 Mg PO BID Review of Systems Except as stated in HPI: all other systems reviewed are Neg General / Constitutional: No: Fever Eyes: No: Visual changes HENT: Positive: Sore Throat, No: Headaches Cardiovascular: No: Chest Pain or Discomfort Respiratory: No: Shortness of Breath Gastrointestinal: No: Abdominal Pain Genitourinary: No: Dysuria Physical Exam Narrative GENERAL: Alert end well-appearing female. SKIN: Warm and dry. No rash HEAD: Normocephalic. EYES: No scleral icterus. No injection or drainage. Ear/nose/throat: Oropharynx has without erythema. No tonsillar hypertrophy or exudate. Uvula his midline. Airways patent. NECK: Supple, trachea midline. No lymphadenopathy. CARDIOVASCULAR: Regular rate and rhythm RESPIRATORY: Breath sounds equal bilaterally. No accessory muscle use. GASTROINTESTINAL: Abdomen soft, non-tender, nondistended. MUSCULOSKELETAL: No cyanosis, or edema. BACK: Nontender without obvious deformity. No CVA tenderness. Data Data Last Documented VS Vital Signs Date Time Temp Pulse Resp B/P (MAP) Pulse Ox O2 Delivery O2 Flow Rate FiO2 10/17/17 16:21 98.5 80 16 130/63 (85) 100 Orders Orders Group A Rapid Strep Screen (10/17/17 17:38) Strep Culture (Group A) (10/17/17 17:40) MDM Medical Decision Making Medical Screen Exam Complete: Yes Emergency Medical Condition: Yes Differential Diagnosis Strep Pharyngitis, viral pharyngitis, GERD Narrative Course 42-year-old female here with complaint of throat irritation for 1 year. She denies difficulty swallowing or fever and chills. She is well-appearing. Her oropharynx is without erythema, tonsillar hypertrophy or exudate. This sounds to be esophageal irritation from GERD. She will be prescribed Pepcid and instructed to follow-up with her PCP. Diagnosis Primary Impression: GERD (gastroesophageal reflux disease) Qualified Codes: K21.9 - Gastro-esophageal reflux disease without esophagitis Referrals: [facility] Additional Instructions: Follow-up with the [facility]. Scripts Famotidine (Pepcid) 20 Mg Tab 20 MG PO BID, #30 TAB 0 Refills Prov: Alexus Al 10/17/17 Disposition: 01 DISCHARGE HOME Condition: Stable Alexus Al Oct 17, 2017 18:02
== END 2017-10-17 18:39 | disposition home or self-care (01) ==
LOC: NEPK 16:19
DX: K21.9 Gastro-esophageal reflux disease without esophagitis (principal); Z72.0 Tobacco use
CPT/HCPCS: 87081; 87880; 99283

== ENCOUNTER 2017-11-12 18:26 | Emergency (ER) | payer SELFPAY ==
[~2017-11-12] VITALS: Ht 167.6 cm; Wt 80.0 kg
[~2017-11-12 18:26] MED LIST changes: -DOXY100T PO; +FAMO1TAB37 PO; -METR0.7528 VAGINAL; -NAPR5TAB5 PO; -NORE5TAB PO
[2017-11-12 18:30] VITALS: BP 133/66; PULSE 88; RESP 13; TEMP 98.7; O2SAT 100
[2017-11-12] MEDS ORDERED: PANTOPRAZOLE SODIUM 40 MG VIAL IV PUSH ONE (19:00)
[2017-11-12] MEDS ORDERED: NYSTATIN SUSP 500,000 U/5 ML CUP SWISH-SWAL ONE (19:00)
--- NOTE | 2017-11-12 19:19 | PD ---
HPI Chief Complaint: Chest Pain Time Seen by Provider: 18:40 Travel History International Travel<30 days: No Contact w/Intl Traveler<30days: No Traveled to known affect area: No History of Present Illness HPI 42-year-old female that presents to the ED for evaluation of chest discomfort, anxiety and insomnia. Per patient she has "an infection" and she states that this might be causing it. Per patient she was seen by her doctor at the [facility] and given 2 prescriptions but she states that she's not been able to fill them out because she has no money for it. Per patient she has pain in her chest from her "GERD". When asked what infection she has she states that she has "GERD". She states that she also has a history of heartburn. Per patient she's been taking anything [id number] for this. When asked what kind of symptoms she has she says that she has chest discomfort whenever she is stressed and she feels like her nose is clouded here per patient when asked if she feels stressed she states that she's been more stressed because of her significant other apparently has advised that allows him to get into her phone and per patient she believes that whenever he is doing on the phone is causing her discomfort and her infection. She denies any suicidal or homicidal ideation but states that she does feel depressed. She feels very anxious. Per patient she hasn't slept in the past couple of weeks. Denies any urinary or bowel movement issues. Per patient the chest pain only comes with stressors. Pain per patient is 4 out of 10. PFSH Past Medical History Hx Anticoagulant Therapy: No Heart Rhythm Problems: No Cardiac Catheterization: No Cardiovascular Problems: No High Cholesterol: No Chemotherapy: No Congestive Heart Failure: No Cerebrovascular Accident: No Diabetes: No Diminished Hearing: No GERD: Yes Headaches: Yes Heparin Induced Thrombocytopen: No Hypertension: No Psychiatric: Yes (depression) Respiratory: No Immunizations Current: No Myocardial Infarction: No ?: Unknown LMP: UTD : 3 Para: 3 Miscarriage: 0 : 0 Tubal Ligation: Yes Past Surgical History Surgical History: No Previous Surgery Coronary Artery Bypass Graft: No Hysterectomy: No Family History Family Myocardial Infarction: Yes Social History Alcohol Use: No Tobacco Use: No Substance Use: No Allergies-Medications (Allergen,Severity, Reaction): Coded Allergies: metronidazole (Verified Allergy, Severe, 10/17/17) No Known Allergies (Verified Allergy, Unknown, 10/17/17) Reported Meds & Prescriptions Reported Meds & Active Scripts Active Active Prescriptions or Reported Medications Unobtainable Review of Systems Except as stated in HPI: all other systems reviewed are Neg Physical Exam Narrative GENERAL: SKIN: Warm and dry. HEAD: Atraumatic. Normocephalic. EYES: Pupils equal and round. No scleral icterus. No injection or drainage. ENT: No nasal bleeding or discharge. Mucous membranes pink and moist. Tongue is midline. No uvula deviation. Patient does appear to have white patches on the tongue. They are removable. Tonsils are not enlarged or swollen. No uvula deviation. NECK: Trachea midline. No JVD. CARDIOVASCULAR: Regular rate and rhythm. RESPIRATORY: No accessory muscle use. Clear to auscultation. Breath sounds equal bilaterally. GASTROINTESTINAL: Abdomen soft, non-tender, nondistended. Hepatic and splenic margins not palpable. MUSCULOSKELETAL: Extremities without clubbing, cyanosis, or edema. No obvious deformities. Full range of motion of the upper and lower extremities bilaterally. 2+ pulses bilaterally. NEUROLOGICAL: Awake and alert. No obvious cranial nerve deficits. Motor grossly within normal limits. Five out of 5 muscle strength in the arms and legs. Normal speech. PSYCHIATRIC: Appropriate mood and affect; insight and judgment normal. Data Data Last Documented VS Vital Signs Date Time Temp Pulse Resp B/P (MAP) Pulse Ox O2 Delivery O2 Flow Rate FiO2 11/12/17 18:30 98.7 88 13 133/66 (88) 100 Orders Orders Electrocardiogram (11/12/17 18:51) Complete Blood Count With Diff (11/12/17 18:51) Comprehensive Metabolic Panel (11/12/17 18:51) Troponin I (11/12/17 18:51) Lipase (11/12/17 18:51) Urinalysis - C+S If Indicated (11/12/17 18:51) Magnesium (Mg) (11/12/17 18:51) Thyroid Stimulating Hormone (11/12/17 18:51) Iv Access Insert/Monitor (11/12/17 18:51) Psych Screen (11/12/17 18:51) Drug Screen, Random Urine (11/12/17 18:51) Pantoprazole Inj (Protonix Inj) (11/12/17 19:00) Nystatin Liq (Mycostatin Liq) (11/12/17 19:00) Ondansetron Inj (Zofran Inj) (11/12/17 19:45) Al-Mag Hy-Si 40-40-4 Mg/Ml Liq (Mag-Al P (11/12/17 19:45) Lidocaine 2% Viscous (Xylocaine 2% Visco (11/12/17 19:45) Potassium Chloride (Kcl) (11/12/17 20:30) Labs Laboratory Tests Test 11/12/17 18:55 White Blood Count 6.7 TH/MM3 Red Blood Count 4.42 MIL/MM3 Hemoglobin 9.2 GM/DL Hematocrit 29.4 % Mean Corpuscular Volume 66.5 FL Mean Corpuscular Hemoglobin 20.9 PG Mean Corpuscular Hemoglobin Concent 31.4 % Red Cell Distribution Width 17.4 % Platelet Count 291 TH/MM3 Mean Platelet Volume 7.6 FL Neutrophils (%) (Auto) 61.3 % Lymphocytes (%) (Auto) 30.8 % Monocytes (%) (Auto) 5.9 % Eosinophils (%) (Auto) 1.3 % Basophils (%) (Auto) 0.7 % Neutrophils # (Auto) 4.1 TH/MM3 Lymphocytes # (Auto) 2.1 TH/MM3 Monocytes # (Auto) 0.4 TH/MM3 Eosinophils # (Auto) 0.1 TH/MM3 Basophils # (Auto) 0.0 TH/MM3 CBC Comment DIFF FINAL Differential Comment Blood Urea Nitrogen 8 MG/DL Creatinine 0.70 MG/DL Random Glucose 92 MG/DL Total Protein 7.5 GM/DL Albumin 3.7 GM/DL Calcium Level 8.6 MG/DL Magnesium Level 2.0 MG/DL Alkaline Phosphatase 83 U/L Aspartate Amino Transf (AST/SGOT) 14 U/L Alanine Aminotransferase (ALT/SGPT) 14 U/L Total Bilirubin 0.3 MG/DL Sodium Level 139 MEQ/L Potassium Level 3.1 MEQ/L Chloride Level 106 MEQ/L Carbon Dioxide Level 27.6 MEQ/L Anion Gap 5 MEQ/L Estimat Glomerular Filtration Rate 111 ML/MIN Troponin I LESS THAN 0.02 NG/ML Lipase 158 U/L Thyroid Stimulating Hormone 3rd Gen 0.992 uIU/ML MDM Medical Decision Making Medical Screen Exam Complete: Yes Emergency Medical Condition: Yes Medical Record Reviewed: Yes Interpretation(s) CBC & BMP Diagram 11/12/17 18:55 Total Protein 7.5, Albumin 3.7, Calcium Level 8.6, Magnesium Level 2.0, Alkaline Phosphatase 83, Aspartate Amino Transf (AST/SGOT) 14 L, Alanine Aminotransferase (ALT/SGPT) 14, Total Bilirubin 0.3 Troponin and CK-MB negative. EKG shows sinus rhythm with no sign of acute ischemia or arrhythmia by me and attending. Differential Diagnosis GERD versus thrush versus pharyngitis versus chest pain versus atypical chest pain versus stress versus anxiety Narrative Course 42-year-old female that presents to the ED for evaluation of throat pain and chest pain. Patient was properly examined and was found to have signs and symptoms of unclear etiology at this time. She somewhat of a poor historian is specks on she states that she's not been sleeping she's been having a lot of anxiety. Per patient she has no chest pain but she has "GERD". She says that she is not able to take her medications because she cannot afford them and there were just prescribed by her doctor on Monday. She says that she is also having insomnia. Labs and imaging were ordered. Patient apparently refused chest x-ray. Labs and imaging were essentially unremarkable. Unclear as to the etiology of her symptoms. Patient does not appear to be a threat to herself or others but she does appear to be somewhat psychotic. Unclear if this is related to anxiety or insomnia. I did offer patient psychiatric evaluation and she agreed to this. X-ray was ordered. Patient was medically clear. Mental health screening was discussed with the patient. Diagnosis Primary Impression: Oral pharyngeal candidiasis Additional Impressions: GERD (gastroesophageal reflux disease) Qualified Codes: K21.9 - Gastro-esophageal reflux disease without esophagitis Mood disorder Scripts Unable to Obtain Active Prescriptions or Reported Meds Hans Soriano Nov 12, 2017 19:19
[2017-11-12 19:23] LABS: AUTOMATED NEUTROPHIL # 4.1 TH/MM3 (1.8-7.7); BASOPHIL % 0.7 % (0.0-2.0); EOSINOPHIL # 0.1 TH/MM3 (0-0.4); EOSINOPHIL % 1.3 % (0.0-4.0); HEMATOCRIT 29.4 % (35.0-46.0); HEMOGLOBIN 9.2 GM/DL (11.6-15.3); LYMPH % 30.8 % (9.0-44.0); LYMPHOCYTE # 2.1 TH/MM3 (1.0-4.8); MEAN CELL VOLUME 66.5 FL (80.0-100.0); MEAN CORPUSCULAR HEMOGLOBIN 20.9 PG (27.0-34.0); MEAN CORPUSCULAR HGB CONC 31.4 % (32.0-36.0); MEAN PLATELET VOLUME 7.6 FL (7.0-11.0); MONO % 5.9 % (0.0-8.0); MONOCYTE # 0.4 TH/MM3 (0-0.9); NEUT % 61.3 % (16.0-70.0); PLATELET COUNT 291 TH/MM3 (150-450); RED BLOOD COUNT 4.42 MIL/MM3 (4.00-5.30); RED CELL DISTRIBUTION WIDTH 17.4 % (11.6-17.2); WHITE BLOOD COUNT 6.7 TH/MM3 (4.0-11.0)
[2017-11-12 19:37] LABS: ALBUMIN 3.7 GM/DL (3.4-5.0); AST (GOT) 14 U/L (15-37); BICARBONATE 27.6 MEQ/L (21.0-32.0); BLOOD UREA NITROGEN 8 MG/DL (7-18); CALCIUM 8.6 MG/DL (8.5-10.1); CHLORIDE 106 MEQ/L (98-107); GLOMERULAR FILTRATION RATE 111 ML/MIN (>89); GLUCOSE,RANDOM 92 MG/DL (74-106); SODIUM (NA) 139 MEQ/L (136-145)
[2017-11-12 19:38] LABS: ALT (GPT) 14 U/L (10-53)
[2017-11-12] MEDS ORDERED: ALUMINUM/MAGNESIUM/SIMETH 30 ML CUP PO ONE (19:45)
[2017-11-12] MEDS ORDERED: ONDANSETRON HCL 4 MG/2 ML VIAL IV PUSH ONE (19:45)
[2017-11-12] MEDS ORDERED: LIDOCAINE VISCOUS 2% SOLN 15 ML UDC PO ONE (19:45)
[2017-11-12 19:48] LABS: ALKALINE PHOSPHATASE 83 U/L (45-117); TOTAL BILIRUBIN ADULT 0.3 MG/DL (0.2-1.0); TOTAL PROTEIN 7.5 GM/DL (6.4-8.2); TROPONIN I LESS THAN 0.02 NG/ML (0.02-0.05)
[2017-11-12] MEDS ORDERED: POTASSIUM CHLORIDE 20 MEQ CONTROLLED RELEASE TAB PO ONE (20:30)
[2017-11-12] MEDS ORDERED: LORazepam 2 MG/ML VIAL IV PUSH ONE (20:30)
[2017-11-13 01:00] VITALS: BP 112/60; PULSE 79; RESP 15; O2SAT 100
[2017-11-13 08:01] VITALS: BP 109/53; PULSE 72; RESP 18; O2SAT 100
--- NOTE | 2017-11-13 11:08 | EKG ---
Date Performed: 11/12/2017 Time Performed: 19:38:32 PTAGE: 42 years EKG: Sinus rhythm POSSIBLE RIGHT VENTRICULAR CONDUCTION DELAY BORDERLINE ECG Since the prior tracing, there has been n o significant change PREVIOUS TRACING : 03/20/2017 02.10 DOCTOR: Alonso Glasgow Interpretating Date/Time 11/13/2017 11:03:21
--- NOTE | 2017-11-13 13:36 | PD ---
Physical Exam Date Seen by Provider: Nov 13, 2017 Time Seen by Provider: 13:34 Narrative Patient was seen medically last night by ER physician and PA, had come in complaining of palpitations, chest discomfort, thought she had reflux, multiple complaints, and had workup that essentially was unremarkable. She states that she has been having the symptoms and it feels just like her reflux but she is not on any reflux medications. Workup appears to be fairly unremarkable. She was waiting to see psych, but when psychiatry was going to talk to her, she refused to talk to them stating that she does not have any psychiatric needs. She is not reporting any homicidal or suicidal ideation, is not under [place] act. I have talked to her regarding the findings last night, and have recommended that she follows up with primary care physician for further evaluation. She is currently awake, alert, oriented 3 and able to make her own decisions. Vital signs are stable. She is ambulatory without issues in the ER. She should return for new issues as needed. Data Data Last Documented VS Vital Signs Date Time Temp Pulse Resp B/P (MAP) Pulse Ox O2 Delivery O2 Flow Rate FiO2 11/13/17 08:01 72 18 109/53 (71) 100 Room Air 11/12/17 18:30 98.7 Orders Orders Electrocardiogram (11/12/17 18:51) Complete Blood Count With Diff (11/12/17 18:51) Comprehensive Metabolic Panel (11/12/17 18:51) Troponin I (11/12/17 18:51) Lipase (11/12/17 18:51) Urinalysis - C+S If Indicated (11/12/17 18:51) Magnesium (Mg) (11/12/17 18:51) Thyroid Stimulating Hormone (11/12/17 18:51) Iv Access Insert/Monitor (11/12/17 18:51) Psych Screen (11/12/17 18:51) Drug Screen, Random Urine (11/12/17 18:51) Pantoprazole Inj (Protonix Inj) (11/12/17 19:00) Nystatin Liq (Mycostatin Liq) (11/12/17 19:00) Ondansetron Inj (Zofran Inj) (11/12/17 19:45) Al-Mag Hy-Si 40-40-4 Mg/Ml Liq (Mag-Al P (11/12/17 19:45) Lidocaine 2% Viscous (Xylocaine 2% Visco (11/12/17 19:45) Potassium Chloride (Kcl) (11/12/17 20:30) Lorazepam Inj (Ativan Inj) (11/12/17 20:30) Ed Discharge Order (11/13/17 13:33) Labs Laboratory Tests Test 11/12/17 18:55 White Blood Count 6.7 TH/MM3 Red Blood Count 4.42 MIL/MM3 Hemoglobin 9.2 GM/DL Hematocrit 29.4 % Mean Corpuscular Volume 66.5 FL Mean Corpuscular Hemoglobin 20.9 PG Mean Corpuscular Hemoglobin Concent 31.4 % Red Cell Distribution Width 17.4 % Platelet Count 291 TH/MM3 Mean Platelet Volume 7.6 FL Neutrophils (%) (Auto) 61.3 % Lymphocytes (%) (Auto) 30.8 % Monocytes (%) (Auto) 5.9 % Eosinophils (%) (Auto) 1.3 % Basophils (%) (Auto) 0.7 % Neutrophils # (Auto) 4.1 TH/MM3 Lymphocytes # (Auto) 2.1 TH/MM3 Monocytes # (Auto) 0.4 TH/MM3 Eosinophils # (Auto) 0.1 TH/MM3 Basophils # (Auto) 0.0 TH/MM3 CBC Comment DIFF FINAL Differential Comment Blood Urea Nitrogen 8 MG/DL Creatinine 0.70 MG/DL Random Glucose 92 MG/DL Total Protein 7.5 GM/DL Albumin 3.7 GM/DL Calcium Level 8.6 MG/DL Magnesium Level 2.0 MG/DL Alkaline Phosphatase 83 U/L Aspartate Amino Transf (AST/SGOT) 14 U/L Alanine Aminotransferase (ALT/SGPT) 14 U/L Total Bilirubin 0.3 MG/DL Sodium Level 139 MEQ/L Potassium Level 3.1 MEQ/L Chloride Level 106 MEQ/L Carbon Dioxide Level 27.6 MEQ/L Anion Gap 5 MEQ/L Estimat Glomerular Filtration Rate 111 ML/MIN Troponin I LESS THAN 0.02 NG/ML Lipase 158 U/L Thyroid Stimulating Hormone 3rd Gen 0.992 uIU/ML [facility] Medical Record Reviewed: Yes Supervised Visit with JODY: No Diagnosis Primary Impression: Oral pharyngeal candidiasis Additional Impressions: Mood disorder GERD (gastroesophageal reflux disease) Qualified Codes: K21.9 - Gastro-esophageal reflux disease without esophagitis Scripts Unable to Obtain Active Prescriptions or Reported Meds Disposition: 01 DISCHARGE HOME Condition: Stable Adele Lynch MD Nov 13, 2017 13:35
== END 2017-11-13 13:51 | disposition home or self-care (01) ==
LOC: NEPE 18:26
DX: B37.0 Candidal stomatitis (principal); F39 Unspecified mood [affective] disorder; K21.9 Gastro-esophageal reflux disease without esophagitis; F41.9 Anxiety disorder, unspecified; Z88.8 Allergy status to other drugs, medicaments and biological substances
CPT/HCPCS: 80053; 83690; 83735; 84443; 84484; 85025; 93005; 96374; 99284; C9113

== ENCOUNTER 2018-03-25 15:15 | Emergency (ER) | payer SELFPAY ==
[~2018-03-25] VITALS: Ht 170.2 cm; Wt 60.0 kg
[2018-03-25 15:21] VITALS: BP 122/60; PULSE 77; RESP 16; TEMP 98.4; O2SAT 100
[2018-03-25] MEDS ORDERED: diphenhydrAMINE HCL 50 MG/ML VIAL IV PUSH ONE (16:45)
--- NOTE | 2018-03-25 17:03 | PD ---
HPI Chief Complaint: Musculoskeletal Complaint Time Seen by Provider: 16:20 Travel History International Travel<30 days: No Contact w/Intl Traveler<30days: No Traveled to known affect area: No History of Present Illness HPI Patient is a 42 year old female who comes in complaining of swelling of her nose when she eats. She says because of this she is unable to gain any weight. She says she believes someone is potentially poisoning her, possibly through the phone. She says she also gets a burning pain in her groin area. All of her symptoms have been going on for several months. She says she thinks she might have Crohn's disease and she would like to be checked for this. She says she tried taking a "mucus pills" without relief of her symptoms. She denies nausea or vomiting. She denies fever or chills. Severity is mild. PFSH Past Medical History Hx Anticoagulant Therapy: No Heart Rhythm Problems: No Cardiac Catheterization: No Cardiovascular Problems: No High Cholesterol: No Chemotherapy: No Congestive Heart Failure: No Cerebrovascular Accident: No Diabetes: No Diminished Hearing: No GERD: Yes Headaches: Yes Heparin Induced Thrombocytopen: No Hypertension: No Psychiatric: Yes (depression) Respiratory: No Immunizations Current: No Myocardial Infarction: No ?: Not LMP: 2 weeks : 3 Para: 3 Miscarriage: 0 : 0 Tubal Ligation: Yes Past Surgical History Coronary Artery Bypass Graft: No Hysterectomy: No Social History Alcohol Use: No Tobacco Use: No Substance Use: No Allergies-Medications (Allergen,Severity, Reaction): Coded Allergies: metronidazole (Verified Allergy, Severe, 10/17/17) No Known Allergies (Verified Allergy, Unknown, 10/17/17) Reported Meds & Prescriptions Reported Meds & Active Scripts Active Active Prescriptions or Reported Medications Unobtainable Review of Systems Except as stated in HPI: all other systems reviewed are Neg General / Constitutional: No: Fever, Chills HENT: No: Headaches, Lightheadedness, Sore Throat Cardiovascular: No: Chest Pain or Discomfort Respiratory: No: Shortness of Breath Gastrointestinal: Positive: Abdominal Pain Musculoskeletal: No: Myalgias, Edema Skin: No Rash, No Change in Pigmentation Neurologic: No: Weakness, Dizziness Physical Exam Narrative GENERAL: Awake and alert, in no acute distress. SKIN: Focused skin assessment warm/dry. HEAD: Atraumatic. Normocephalic. EYES: Pupils equal and round. No scleral icterus. ENT: No lesions seen in the nose, no abnormalities in the nostrils. Mucous membranes pink and moist. CARDIOVASCULAR: Regular rate and rhythm. No murmur appreciated. RESPIRATORY: No accessory muscle use. Clear to auscultation. Breath sounds equal bilaterally. GASTROINTESTINAL: Abdomen soft, non-tender, nondistended. MUSCULOSKELETAL: No obvious deformities. No clubbing. No cyanosis. No edema. NEUROLOGICAL: Awake and alert. No obvious cranial nerve deficits. Motor grossly within normal limits. Normal speech. PSYCHIATRIC: Appropriate mood and affect; insight and judgment normal. Data Data Last Documented VS Vital Signs Date Time Temp Pulse Resp B/P (MAP) Pulse Ox O2 Delivery O2 Flow Rate FiO2 03/25/18 15:21 98.4 77 16 122/60 (80) 100 Orders Orders Iv Access Insert/Monitor (03/25/18 16:40) Complete Blood Count With Diff (03/25/18 16:40) Comprehensive Metabolic Panel (03/25/18 16:40) Diphenhydramine Inj (Benadryl Inj) (03/25/18 16:45) Urinalysis - C+S If Indicated (03/25/18 17:03) MDM Medical Decision Making Medical Screen Exam Complete: Yes Emergency Medical Condition: Yes Medical Record Reviewed: Yes Differential Diagnosis allergies vs anxiety vs dehydration Narrative Course Patient is a 42 year old female who comes in complaining of swelling of her nose when she eats and lower abdominal pain. Exam shows no acute abnormalities. IV established, labs sent. Given a dose of Benadryl. Patient states she has to go to work. She does not want to stay for any testing. She is advised follow-up with a primary care physician. Advised that I cannot tell her what is going on without doing some testing. Advised that leaving AGAINST MEDICAL ADVICE could cause severe disability or . Patient elects to leave AGAINST MEDICAL ADVICE. AMA: The risks of leaving against medical advice without further evaluation treatment were discussed with the patient. These risks include cardiac dysfunction, cardiac dysrhythmia, possible heart attack, possible stroke or . The patient indicated understanding of these risks and appeared to have the capacity to make this decision. Diagnosis Primary Impression: Nasal congestion Scripts Unable to Obtain Active Prescriptions or Reported Meds Disposition: AGAINST MEDICAL ADVICE Condition: Danna Robison MD Mar 25, 2018 17:03
== END 2018-03-25 17:52 | disposition left against medical advice (07) ==
LOC: NEPD 15:15
DX: R09.81 Nasal congestion (principal); R10.30 Lower abdominal pain, unspecified; K21.9 Gastro-esophageal reflux disease without esophagitis; Z53.29 Procedure and treatment not carried out because of patient's decision for other reasons
CPT/HCPCS: 99281

== ENCOUNTER 2018-05-28 01:01 | Observation (INO) ==
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
--- NOTE | 2018-05-28 02:52 | XR ---
EXAM DATE: 05/28/2018 2:44 AM EDT AGE/SEX: 43 years / Female INDICATIONS: Chest pain off and on for a few days. Difficulty breathing. CLINICAL DATA: This is the patient's initial encounter. Patient reports that signs and symptoms have been present for 2 weeks and indicates a pain score of 5/10. MEDICAL/SURGICAL HISTORY: None. Tubal [place]. [place] [facility] [place] [facility] [place]. . FINDINGS: A single AP view of the chest demonstrates the lungs to be symmetrically aerated without evidence of mass, infiltrate or effusion. The cardiomediastinal contours are unremarkable. Osseous structures a re intact. CONCLUSION: No evidence of acute cardiopulmonary disease. Electronically signed by: Robin Willis MD 05/28/2018 2:50 AM EDT
[2018-05-28 02:55] LABS: Baso # (Auto) 0.1 th/mm3 (0.0-0.2); Baso % (Auto) 1.3 % (0.0-2.0); Eos % (Auto) 0.6 % (0.0-4.0); Hematocrit 26.6 % (35.0-46.0); Hemoglobin 8.2 gm/dL (11.6-15.3); Lymph # (Auto) 1.7 th/mm3 (1.0-4.8); Mean Corpuscular Hemoglobin 20.6 pg (27.0-34.0); Mean Corpuscular Volume 67.1 fL (80.0-100.0); Mean Platelet Volume 7.6 fL (7.0-11.0); Mono # (Auto) 0.4 th/mm3 (0.0-0.9); Mono % (Auto) 5.2 % (0.0-8.0); Neut # (Auto) 5.2 th/mm3 (1.8-7.7); Neut % (Auto) 69.9 % (16.0-70.0); Platelet Count 328 th/mm3 (150-450); Red Blood Count 3.96 mil/mm3 (4.00-5.30); Red Cell Distribution Width 18.2 % (11.6-17.2); White Blood Count 7.4 th/mm3 (4.0-11.0)
[2018-05-28 02:56] LABS: Mean Corpuscular HGB Conc 30.7 % (32.0-36.0)
[2018-05-28 03:04] LABS: Activated Partial Thrombo Time 24.3 sec (24.3-30.1); INR 1.2 Ratio; Prothrombin Time 11.7 sec (9.8-11.6)
[2018-05-28 03:12] LABS: Alanine Aminotransferase 16 U/L (10-53); Albumin 3.5 g/dL (3.4-5.0); Anion Gap 11 meq/L (5-15); Aspartate Aminotransferase 22 U/L (15-37); Blood Urea Nitrogen 6 mg/dL (7-18); Calcium 8.1 mg/dL (8.5-10.1); Carbon Dioxide 22.8 meq/L (21.0-32.0); Chloride 108 meq/L (98-107); Glomerular Filtration Rate Greater Than 89 mL/min (>89); Glucose,Random 86 mg/dL (74-106); Lipase 164 U/L (73-393); Magnesium 2.1 mg/dL (1.5-2.5); Potassium 3.7 meq/L (3.5-5.1); Sodium 142 meq/L (136-145)
[2018-05-28 03:17] LABS: Alkaline Phosphatase 65 U/L (45-117); Creatine Kinase 140 U/L (26-192); Total Protein 7.1 g/dL (6.4-8.2)
[2018-05-28] MEDS ORDERED: Acetaminophen 500 MG Tablet PO PRN (05:13)
[2018-05-28] MEDS ORDERED: Sod Chloride 0.9% Inj 1,000 ML IV.CONT SCH (05:15)
[2018-05-28 07:17] LABS: Creatine Kinase 133 U/L (26-192)
[2018-05-28 08:48] VITALS: O2SAT 100
[2018-05-28 09:04] LABS: Creatine Kinase 96 U/L (26-192)
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
[2018-05-28 10:14] LABS: % Iron Saturation 3.1 % (20-50)
--- NOTE | 2018-05-28 11:43 | ECG ---
Date Performed: 05/28/2018 Time Performed: 01:18:45 PTAGE: 43 years EKG: Sinus rhythm POSSIBLE LEFT ATRIAL ENLARGEMENT ABNORMAL ECG NO PREVIOUS TRACING DOCTOR: Alonso Glasgow Interpretating Date/Time 05/28/2018 11:42:51
--- NOTE | 2018-05-28 11:45 | ECG ---
Date Performed: 05/28/2018 Time Performed: 05:57:58 PTAGE: 43 years EKG: Sinus rhythm POSSIBLE LEFT ATRIAL ENLARGEMENT NO PREVIOUS TRACING DOCTOR: Alonso Glasgow Interpretating Date/Time 05/28/2018 11:44:44
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
[2018-05-28 16:05] VITALS: BP 111/64; PULSE 57; RESP 12; TEMP 98.4
[2018-05-28] MEDS ORDERED: Ferrous Sulfate 325 MG Tablet PO SCH (17:00)
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
--- NOTE | 2018-05-29 16:44 | ECG ---
Date Performed: 05/28/2018 Time Performed: 08:35:13 PTAGE: 43 years EKG: SINUS BRADYCARDIA POSSIBLE LEFT ATRIAL ENLARGEMENT CONSIDER ANTEROSEPTAL MYOCARDIAL INFARCT ION, AGE INTERMINATE REPOLARIZATION ABNORMALITY ABNORMAL ECG PREVIOUS TRACING : 05/28/2018 05.57 DOCTOR: Charan Jenkins Interpretating Date/Time 05/29/2018 16:42:53
--- NOTE | 2018-05-29 16:45 | ECG ---
Date Performed: 05/28/2018 Time Performed: 12:00:43 PTAGE: 43 years EKG: SINUS BRADYCARDIA POSSIBLE LEFT ATRIAL ENLARGEMENT CONSIDER ANTEROSEPTAL MYOCARDIAL INFARCT ION, AGE INTERMINATE REPOLARIZATION ABNORMALITY ABNORMAL ECG NO PREVIOUS TRACING DOCTOR: Charan Jenkins Interpretating Date/Time 05/29/2018 16:43:04
== END 2018-05-28 18:43 | disposition home or self-care (01) ==
LOC: NEDA 01:01 → NEPE 01:01 → NEPGCP 08:07
PROVIDERS: ADMIT Hospitalist; ATTEND Hospitalist